=== PATIENT | female | born 1985 | race Two or more races ===

== ENCOUNTER 2024-03-08 17:15 | Inpatient (IN) | payer MEDICAID, SELFPAY ==
[2024-03-08] VITALS (28 sets, daily range): BP systolic 0–145; BP diastolic 0–81; PULSE 64–100; RESP 16–18; TEMP 36.9–37.1; O2SAT 91–100; BMI 26.6
--- NOTE | 2024-03-08 18:05 | XR_ITS ---
Examination: age Limited Technique: Limited transabdominal sonographic images pelvis Exam date and time: March 08, 2024 1917 hrs. Indications: Induction, unknown presentation Findings: Viable intrauterine gestation cephalic presentation spine maternal left Cardiac motion 130 BPM Estimated gestational weight 3588.9 g Impression: Viable intrauterine gestation cephalic presentation
[2024-03-08 18:07] LABS: Basophils % (Auto) 0 % (0-2.5); Eosinophils # (Auto) 0.1 Thou/mm3 (0.0-0.5); Eosinophils % (Auto) 1 % (0-10); Hematocrit 38.1 % (36.0-46.0); Hemoglobin 13.3 g/dL (12.0-16.0); Immature Granulocytes % (Auto) 1 % (0-0); Lymphocytes # (Auto) 2.8 Thou/mm3 (1.0-4.8); Lymphocytes % (Auto) 28 % (10-50); Mean Corpuscular HGB Conc 34.9 g/dl (31.0-37.0); Mean Corpuscular Volume 92 fL (80-100); Monocytes # (Auto) 0.6 Thou/mm3 (0.0-0.8); Monocytes % (Auto) 6 % (0-12); Neutrophils # (Auto) 6.4 Thou/mm3 (1.8-7.7); Neutrophils % (Auto) 64 % (37-80); Nucleated Red Blood Cell % 0 /100 WBC (0); Platelet Count 127 Thou/mm3 (140-440); RDW Standard Deviation 42.6 fL (36.4-46.3); Red Blood Count 4.15 Miln/mm3 (4.00-5.20)
--- NOTE | 2024-03-08 18:29 | PD.LDHP ---
Documentation for date of: 03/08/24 OB Labor/Induct. HPI History of Present Illness Chief complaint: 38 y/o AMA presents for IOL due to AMA elective : 2 Para: 0 Term pregnancies: 0 pregnancies: 0 Living children: 0 History of Abortions: Spontaneous and Elective: 1 History of Vaginal deliveries: 0 History of sections: No History of : No LJ: 03/09/24 Gestational Age (weeks): 39 Gestational Age (days): 6 Indication for induction: other (AMA and elective) History of present illness: 38 y/o AMA presents for IOL due to AMA elective. Cervix is closed, membranes intact, category 1 tracing. GBS is neg. has been complicated by advance maternal age. Otherwise normal . Fetus is vertex per US and EFW 3500g. History of Present Dating criteria: based on LMP only Adequate Care: Yes Ultrasounds: normal 1st trimester US and normal mid trimester US Obstetrical complications: other (AMA) Labs Labs: Positive: Rubella Titre, Negative: RPR, Hepatitis B, HIV, Chlamydia, Gonorrhea and Group Beta Strep and Unknown: Herpes Type 1, Herpes Type 2 and Covid-19 Review of Systems Review of Systems Systems Reviewed: All systems reviewed, normal except as documented Past Medical History Surgical History SURGICAL: Negative Section Meds Home Medications and Allergies Home Medications ?Medication ?Instructions ?Recorded ?Confirmed ?Type yfmitwik-[id number] 1 mg See Rx Instructions .Route .COMPLEX 03/08/24 03/08/24 History tablet Allergies Allergy/AdvReac Type Severity Reaction Status Date / Time No Known Allergies Allergy Verified 03/08/24 17:36 OB Exam Physical Exam Vital signs: Temp Pulse Resp BP Pulse Ox 98.4 F 71 18 122/79 99 03/08/24 17:25 03/08/24 18:06 03/08/24 17:25 03/08/24 18:06 03/08/24 18:25 Constitutional Constitutional: no acute distress Routine HEENT Exam Head: Present normocephalic and atraumatic Eye: Present EOMI, PERRL and normal accommodation ENT: Present mucous membranes moist Routine Neck Exam Neck: Present full ROM Routine Respiratory Exam Respiratory: Absent respiratory distress Routine Cardiovascular Exam Cardiovascular: Present RRR Routine Abdominal Exam Abdominal: Present soft and normoactive bowel sounds Comments: Gravid Uterus EFW 3500g Routine Exam External: Present normal urethra appearance; Absent lesions Detailed Labor and Delivery Exam Dilation (cm): closed Consistency: medium Membranes: intact Baseline heart rate: 125 monitor accelerations: 15x15 monitor decelerations: None residential variability: Moderate (11-25) Contraction frequency (min): none Routine Extremities Exam Extremities: Present full ROM Routine Back/Spine/Pelvis Exam Back/Spine: Present full ROM Routine Skin Exam Skin: Present intact, dry and warm Routine Neurological Exam Neurological: Present alert, oriented X3 and CN II-XII intact Routine Psychiatric Exam Psychiatric: Present normal affect and normal thought process OB Results Labs 03/08/24 17:38 Labs: Short CBC 03/08/24 Range/Units 17:38 WBC 10.0 (3.6-11.0) Thou/mm3 Hgb 13.3 (12.0-16.0) g/dL Hct 38.1 (36.0-46.0) % Plt Count 127 L (140-440) Thou/mm3 OB Assessment & Plan Assessment and Plan (1) Encounter for induction of labor: Status: Acute (2) AMA (advanced maternal age) primigravida 35+: Status: Acute (3) with 39 completed weeks gestation: Status: Acute Additional Plan Induction method: other (Cervidil) Plan: induction, anticipate NVD and consult MD prn Additional Plan Comment: Routine Admit orders Ok to eat regular diet early in the induction Intermittent monitor is ok (2) AMA (advanced maternal age) primigravida 35+ Qualifiers: Trimester: third trimester Qualified Code(s): O09.513 - Supervision of elderly primigravida, third trimester
[2024-03-08 18:42] LABS: Syphilis Nonreactive (Nonreactive)
[2024-03-08] MEDS: RINGERS LACTATED 1000 ML 1,000 ML 125 ML IV (19:14)
[2024-03-08] MEDS: DINOPROSTONE 10 MG VAG.SUPP VAGINAL (20:03)
[2024-03-09] VITALS (179 sets, daily range): BP systolic 0–205; BP diastolic 0–109; PULSE 40–155; RESP 16–20; TEMP 36.7–38.3; O2SAT 91–100
[2024-03-09] MEDS: RINGERS LACTATED 1000 ML 1,000 ML 125 ML IV ×4 (02:04→15:18)
--- NOTE | 2024-03-09 08:37 | PD.LDPN ---
Documentation for date of: 03/09/24 OB Labor Progress Note Pain Control Pain control: tolerating well Pelvic Exam Dilation (cm): 1 Effacement (%): 50 station: -3 Amniotic membrane status: Intact Contractions Monitor mode: External Contraction frequency: 2-4 Contraction duration: 40-90 Status status: Category l Assessment and Plan Assessment: induction ongoing Plan OB labor note: continuous present management Comments: Will start cytotec Pt is slowly progressing, but it is to be anticipated Anticipate
[2024-03-09] MEDS: MISOPROSTOL 50 mCg TABLET PO (09:15)
--- NOTE | 2024-03-09 16:41 | PD.LDPN ---
Documentation for date of: 03/09/24 OB Labor Progress Note Pain Control Pain control: epidural Pelvic Exam Dilation (cm): 6 Effacement (%): 90 station: -2 Amniotic membrane status: Ruptured (clear SROM) Contractions Monitor mode: External Contraction frequency: 2-4 Contraction intensity: Moderate Status status: Category l Assessment and Plan Assessment: active labor Plan OB labor note: continuous present management Comments: PT is progressing well on her on recently SROM, received an epidural, pt is comfortable Anticipate
[2024-03-09] MEDS: ACETAMINOPHEN IVPB 1,000 MG/100 ML VIAL 250 MG IV (22:39)
[2024-03-09] MEDS: GENTAMICIN/NS 80 MG IVPB 80 MG in PRE-MIXED 1 BAG 50 MG IV (23:47)
[2024-03-10] VITALS (46 sets, daily range): BP systolic 0–185; BP diastolic 0–124; PULSE 53–125; RESP 13–24; TEMP 36.1–37.4; O2SAT 80–100
[2024-03-10] MEDS: METOCLOPRAMIDE INJ 5 MG/ML VIAL 2 ML 10 MG IVP (00:48)
[2024-03-10] MEDS: FAMOTIDINE INJ 10 MG/ML VIAL 2 ML 20 MG IV (00:49)
[2024-03-10] MEDS: ceFAZolin/D5W 2 GM IV 2 GM/100 ML BAG IV (00:49)
--- NOTE | 2024-03-10 02:16 | PD.LDPN ---
Documentation for date of: 03/10/24 OB Labor Progress Note Pelvic Exam Dilation (cm): 10 Effacement (%): 90 station: +2 Amniotic membrane status: Ruptured (clear SROM) Contractions Monitor mode: External Contraction frequency: 2-4 Contraction intensity: Moderate Status status: Category ll Assessment and Plan Comments: I was called by RN that patient is complete and having deep variables while pushing. Seen at the bedsid, patient is not pushing well epidural has been off. Trial of vacuum abandoned as there was no descent on first pull and baby continued to be category 2
[2024-03-10] MEDS: OXYTOCIN in NS 20 units 20 UNIT/1,000 ML BAG 125 UNIT IV (02:51)
[2024-03-10] MEDS: Ampicillin Inj 2,000 MG in SODIUM CHLORIDE 0.9% (P) 100 ML 200 MG IV ×4 (03:00→21:41)
[2024-03-10] MEDS: KETOROLAC INJ 30 MG/ML VIAL IVP ×3 (03:18→15:47)
[2024-03-10 07:52] LABS: Basophils # (Auto) 0.1 Thou/mm3 (0.0-0.2); Basophils % (Auto) 0 % (0-2.5); Eosinophils # (Auto) 0.4 Thou/mm3 (0.0-0.5); Eosinophils % (Auto) 2 % (0-10); Hemoglobin 12.5 g/dL (12.0-16.0); Immature Granulocytes % (Auto) 1 % (0-0); Immature Granulocytes Auto 0.13 Thou/mm3 (0.00-0.00); Lymphocytes # (Auto) 1.4 Thou/mm3 (1.0-4.8); Lymphocytes % (Auto) 7 % (10-50); Mean Corpuscular HGB Conc 34.7 g/dl (31.0-37.0); Mean Corpuscular Hemoglobin 32.3 pg (25.0-35.0); Mean Corpuscular Volume 93 fL (80-100); Monocytes # (Auto) 0.9 Thou/mm3 (0.0-0.8); Monocytes % (Auto) 4 % (0-12); Neutrophils # (Auto) 17.6 Thou/mm3 (1.8-7.7); Neutrophils % (Auto) 86 % (37-80); Nucleated Red Blood Cell % 0 /100 WBC (0); Platelet Count 104 Thou/mm3 (140-440); RDW Standard Deviation 44.2 fL (36.4-46.3); Red Blood Count 3.87 Miln/mm3 (4.00-5.20); White Blood Count 20.4 Thou/mm3 (3.6-11.0)
[2024-03-10] MEDS: Milk Of Magnesia Susp 30 ML UDC PO (08:13)
[2024-03-10] MEDS: SIMETHICONE 80 MG CHEW PO (08:13)
--- NOTE | 2024-03-10 08:35 | PD.LDDELS ---
Vacuum Assisted Delivery Vacuum Application Vacuum type:: Mityvac Vacuum Procedure Number of pulls (contractions):: 1 Number of pop-offs:: 1 Vacuum successful:: No Additional Comments Additional comments: as descent of head was not seen during the pull , and heart tone remained cat 2 , PLTCS was doen and vacccum attempt abandoned Data (Ramirez) Data Hx Section: No Reason for Primary Section: cat 2 FHT : 2 Para: 0 Term: 0 : 0 : 1 Delivery Data (Ramirez) Labor Data Induction: Yes ROM Date: 03/09/24 ROM Time: 13:50 Rupture Type: SROM Amniotic Fluid: Bloody Delivery Data Labor Onset Stage 1 Date: 03/09/24 Labor Onset Stage 1 Time: 13:30 Labor Onset Stage 2 Date: 03/10/24 Labor Onset Stage 2 Time: 00:08 Delivery Date: 03/10/24 Delivery Time: 01:48 Gestational age (weeks): 39 Gestational age (days): 6 Placenta Delivery Date: 03/10/24 Placenta Delivery Time: 01:49 Delivered by: Sanju Styles Delivery nurse: Micaela Gomez Delivery Method Delivery: Delivery Type: Primary Anesthesia Type Primary Anesthesia: Epidural Secondary Anesthesia: General Placenta Placenta Delivery: Manual Placenta Sent for Examination: Yes EBL Estimated blood loss (ml): 300 Data (Ramirez) Data Infant Gender: Female Infant Weight Grams: 3385 1 Minute Total: 2 5 Minute Total: 8 10 Minute Total: 9
--- NOTE | 2024-03-10 08:38 | PD.GYNPROC ---
Operative Note - POSTAL CARRIER Procedure Date of procedure: 03/10/24 Procedure Performed: PRIMARY lOW TRANSVERSE C SECTION Indication: Cta 2 FHT , Vaccum attempt abandoned Pre-Op diagnosis: cat 2 FHT Post-Op diagnosis: SAME Anesthesia type: General Procedure description: Informed consent was obtained and the patient was taken to the operating room.? Identity was confirmed by double identifiers and she was placed on the operating table.The abdomen and perineum were prepped in the usual sterile fashion and a Chin catheter was placed to continuous drainage.? Sterile drapes were applied.??A Pfannenstiel skin incision was made with a scalpel and carried to the subcutaneous fat up to the rectus fascia.? The rectus fascia was incised on either side of the midline and the incisions were extended bilaterally.? The fascia was gently dissected off the ventral surface of the rectus muscle both superiorly and inferiorly. There was no anatomica plane between mil rectus sheath, muscle and peritoneum. Carefully a peritioneal window created and after ruling out adhesion of bowel and bladder it was extended . . The baby was cephalic position stuck deep in pelvis, vaginal push was not succeful in delivering the head , decision taken to do a reverse breech extraction which was successful. The umbilical cord , was doubly clamped, divided and the infant was handed over to the waiting team.cord blood and segment obtained. ? placenta delivered by controlled cord traction . The interior of the uterus was now thorougly cleaned of all blood and debris and membranes.? The? hysterotomy was closed using 0 vicryl suture in double layers. Once the repair was completed the hysterotomy was inspected, was noted to be adequately hemostatic . Muscle oozing stopped by bovie. The rectus fascia was repaired using Vicry 0 in a running fashion.? The subcutaneous layer was now, approximated with 3-0 vicryl in double layers.? All bleeding points were cauterized using the Bovie.?The skin was closed using 4-0 Monocryl in a subcuticular fashion.? The skin was cleaned and a sterile dressing was applied. The patient was now undraped, the abdomen and back were thoroughly cleaned and she was now transferred to the recovery room in a stable Estimated blood loss (ml): 300 Surgical staff Operation Date: 03/10/24 01:[address] MAGISTRATE: Bakari Mckenzie RN First Assistant: Kesha Aponte Diagnosis Problem List Completed Was Problem List Reviewed/Reconciled?: Yes
[2024-03-10] MEDS: OXYTOCIN in NS 20 UNIT/1,000 ML BAG IV (13:29)
[2024-03-10] MEDS: ACETAMINOPHEN 325 MG TABLET 650 MG PO (15:05)
--- NOTE | 2024-03-10 15:39 | CHAP ---
09:30 AM Visited by spiritual care volunteer Provided Baby [place] and prayer for Patient.
--- NOTE | 2024-03-10 16:09 | PC.NURSE ---
Removed patients felix at 14:55. Patient out of bed and urinated 300 ML at 15:45
[2024-03-10 19:04] LABS: Gentamicin, Random 3.8 mcg/mL (4.0-10.0)
--- NOTE | 2024-03-10 20:09 | PC.NURSE ---
03/10/242004: Called MD Joel to clarify antiobiotic orders for pt. Received orders via telephone to discontinue Gentamicin, administer ordered ampicillin 2,000mg at 2100 and then discontinue following completion, and order and administer clindamicin 900mg IV x1 now.
[2024-03-10] MEDS: IBUPROFEN TAB 400 MG TABLET 800 MG PO (20:33)
[2024-03-10] MEDS: CLINDAMYCIN 900MG IVPB 50 ML 100 MG IV (20:34)
[2024-03-11] MEDS: HYDROcodone/APAP 5/325 TABLET 2 TAB PO ×3 (03:31→15:48)
[2024-03-11 03:45] VITALS: BP 113/67; PULSE 79; RESP 20; TEMP 36.9; O2SAT 96
[2024-03-11 07:40] VITALS: BP 127/68; PULSE 82; RESP 18; TEMP 37.1; O2SAT 96
--- NOTE | 2024-03-11 11:13 | PD.LDPPPRG ---
Subjective Subjective Interval history: Patient seen at the bedside denies any fever, nausea vomiting. Has been tolerating p.o. diet. Has already passed gas Exam Vital Signs Temp Pulse Resp BP Pulse Ox O2 Del Method O2 Flow Rate 98.8 F 82 18 127/68 96 Room Air 6 03/11/24 07:40 03/11/24 07:40 03/11/24 07:40 03/11/24 07:40 03/11/24 07:40 03/11/24 07:40 03/10/24 03:00 Constitutional Constitutional: no acute distress Routine HEENT Exam Head: Present normocephalic and atraumatic Eye: Present EOMI and PERRL ENT: Present mucous membranes moist Routine Neck Exam Neck: Present supple and trachea midline Routine Respiratory Exam Respiratory: Present chest non-tender, lungs clear, normal breath sounds and no resp distress Routine Cardiovascular Exam Cardiovascular: Present RRR Routine Abdominal Exam Abdominal: Present soft and normoactive bowel sounds Routine Extremities Exam Extremities: Present full ROM Routine Skin Exam Skin: Present intact, dry and warm Routine Neurological Exam Neurological: Present alert, oriented X3 and CN II-XII intact Routine Psychiatric Exam Psychiatric: Present normal affect and normal thought process Objective Labs 03/10/24 07:07 Labs: Laboratory Results - last 24 hr 03/10/24 18:07 Random Gentamicin 3.8 L Assessment & Plan Problem List (1) Encounter for induction of labor: Status: Acute (2) AMA (advanced maternal age) primigravida 35+: Status: Acute (3) with 39 completed weeks gestation: Status: Acute Assessment Comment Assessment comment: 38-year-old para 3 status post repeat low-transverse , postop day 1 Meeting all postop milestones Vital signs stable Baby at the bedside doing well Plan Comment Plan Comment: Continue postop care Time Spent With Patient Time: Total time spent is greater than 50% in coordination of care (as documented) at patient's floor/unit and/or counseling patient:
[2024-03-11 15:30] VITALS: BP 126/77; PULSE 87; RESP 18; TEMP 36.9; O2SAT 99
[2024-03-11] MEDS: SIMETHICONE 80 MG CHEW PO (15:48)
[2024-03-11 20:20] VITALS: BP 131/77; PULSE 88; RESP 18; TEMP 37; O2SAT 98
[2024-03-11] MEDS: IBUPROFEN TAB 400 MG TABLET 800 MG PO (21:04)
[2024-03-12] MEDS: HYDROcodone/APAP 5/325 TABLET 2 TAB PO (01:06)
[2024-03-12 04:10] VITALS: BP 120/76; PULSE 85; RESP 17; TEMP 36.7; O2SAT 96
--- NOTE | 2024-03-12 08:09 | PD.LDPPPRG ---
Subjective Subjective Interval history: Patient at the bedside. Afebrile, tolerating p.o., ambulating, voiding, positive flatus Exam Vital Signs Temp Pulse Resp BP Pulse Ox O2 Del Method O2 Flow Rate 98.0 F 85 17 120/76 96 Room Air 6 03/12/24 04:10 03/12/24 04:10 03/12/24 04:10 03/12/24 04:10 03/12/24 04:10 03/12/24 04:10 03/10/24 03:00 Routine Abdominal Exam Comments: Soft, appropriately tender. Uterus firm, below the umbilicus. Incision clean, dry, intact Routine Exam Comments: Lochia similar to menses Routine Extremities Exam Comments: Homans' sign negative Objective Labs 03/10/24 07:07 Assessment & Plan Problem List (1) Encounter for induction of labor: Status: Acute (2) AMA (advanced maternal age) primigravida 35+: Status: Acute (3) with 39 completed weeks gestation: Status: Acute Assessment Comment Assessment comment: 38-year-old status post Postop day 2 Plan Comment Plan Comment: Routine care. DC, if stable Time Spent With Patient Time: Total time spent is greater than 50% in coordination of care (as documented) at patient's floor/unit and/or counseling patient:
--- NOTE | 2024-03-12 08:11 | PD.LDDS ---
DS: Providers Provider Date of admission: 03/08/24 17:15 Primary care physician: Physician No Primary/Family Admitting Provider: Jaya Joel MD Attending Provider on Admission: Sanju Styles MD Consults: 03/10/24 02:18 Referral Routine Comment: Attending Provider on DC: Jaya Joel MD Discharging Provider: Jaya Joel MD DS: Diagnosis Problem List Completed Was Problem List Reviewed/Reconciled?: Yes Summary/Hosp Course Brief History: 38 y/o AMA who came for induction of labor at term and delivered via primary due to nonreassuring heart tracing Her postop course was unremarkable and on postop day 2 she was discharged home Peripartum Data Delivery Method: Low Transverse Procedures: Procedures Operation Date: 03/10/24 01:35 Actual Procedure Side Surgeon p in OB Bilateral Sanju Styles MD Time Spent with Patient Time attestation: Total time spent providing and/or coordinating discharge services: Exam Vital Signs Temp Pulse Resp BP Pulse Ox O2 Del Method O2 Flow Rate 98.0 F 85 17 120/76 96 Room Air 6 03/12/24 04:10 03/12/24 04:10 03/12/24 04:10 03/12/24 04:10 03/12/24 04:10 03/12/24 04:10 03/10/24 03:00 Discharge Plan Plan Patient Disposition: HOME (Self Care) Prescriptions/Referrals Prescriptions/Med Rec: New acetaminophen 325 mg Tablet 650 mg PO Q4H 7 Days Qty: 28 0RF ibuprofen 400 mg Tablet 800 mg PO Q8H 7 Days Qty: 21 0RF docusate sodium [Colace] 100 mg capsule 100 mg PO QDAY 7 Days Qty: 7 0RF No Action 1 mg Tablet See Rx Instructions .ROUTE .COMPLEX Rx Instructions: as instructed Referrals: Jaya Joel MD [Physician] - (1 week) No Primary/Family,Physician [Primary Care Provider] - Patient/Caregiver Discharge Instructions Education Materials: C Section Dc Print Language: Cypriot Stand Alone Forms: Karen Award Info., Patient Portal Info Letter Discharge Order Discharge Orders: Discharge (Routine); Ordered 03/12/24 Ordered By: Jaya Joel Planned Discharge Date 03/12/24
[2024-03-12 09:01] VITALS: BP 119/76; PULSE 83; RESP 16; TEMP 37.6; O2SAT 96
[2024-03-12] MEDS: IBUPROFEN TAB 400 MG TABLET 800 MG PO (09:55)
== END 2024-03-12 13:15 | disposition home or self-care (01) | DRG 540 ==
LOC: S4SX 03-09 09:54 → S4NX 03-10 01:58
PROVIDERS: Admitting Provider Obstetrics & Gynecology; Visit Provider Student in an Organized Health Care Education/Training Program
PROC: 10D00Z1 Extraction of Products of Conception, Low, Open Approach (ICD-10-PCS; CPT 59514; principal; 2024-03-10 01:35)
DX: O76 Abnormality in fetal heart rate and rhythm complicating labor and delivery (principal); Z37.0 Single live birth; Z3A.39 39 weeks gestation of pregnancy
CPT/HCPCS: 36415; 59409; 76815; 80170; 82803; 85025; 86780; 86850; 86900; 86901; 94762; A4649; J0131; J0290; J0689; J1580; J1885; J2250; J2590; J2704; J2765; J2795; J3010; J3490; J7050; J7120; S0077; A9270; J0690; J0736

== ENCOUNTER 2024-03-28 10:47 | Emergency (ER) | payer MEDICAID, SELFPAY ==
[2024-03-28 10:55] VITALS: BP 153/84; PULSE 71; RESP 16; TEMP 36.7; O2SAT 99; BMI 22.2
--- NOTE | 2024-03-28 11:49 | PD.EDRME ---
Rapid Medical Screening Exam RME Arrival date/time: 03/28/24 10:47 This is a 38-year-old female that comes in with wound dehiscence. Patient states that she was breast-feeding her child and was about to stand up and she felt a rip in her lower incision for scar. Patient was previously treated for an infection around the scar. Patient complains of pain and fluid draining from wound. Patient called her EXPORT SPECIALIST and was told to come to the emergency room. Patient was 03/10/2024 I have greeted and performed a focused initial assessment of this patient. Initial appropriate labs ordered at this time. A comprehensive ED assessment and evaluation of the patient and analysis of all test and completion of medical decision making process will be conducted by additional ED provider. Chief Complaint: Wound Recheck / Suture Removal Time Seen by Provider: 03/28/24 11:28 Vital signs: Vital Signs Temperature 98.0 F 03/28/24 10:55 Pulse Rate 71 03/28/24 10:55 Respiratory Rate 16 03/28/24 10:55 Blood Pressure 153/84 H 03/28/24 10:55 Pulse Oximetry (%) 99 03/28/24 10:55 Oxygen Delivery Method Room Air 03/28/24 10:55
[2024-03-28 13:10] LABS: Basophils # (Auto) 0.1 Thou/mm3 (0.0-0.2); Basophils % (Auto) 1 % (0-2.5); Eosinophils # (Auto) 0.2 Thou/mm3 (0.0-0.5); Eosinophils % (Auto) 2 % (0-10); Hematocrit 42.3 % (36.0-46.0); Hemoglobin 14.1 g/dL (12.0-16.0); Immature Granulocytes % (Auto) 2 % (0-0); Immature Granulocytes Auto 0.23 Thou/mm3 (0.00-0.00); Lymphocytes # (Auto) 2.3 Thou/mm3 (1.0-4.8); Lymphocytes % (Auto) 20 % (10-50); Mean Corpuscular HGB Conc 33.3 g/dl (31.0-37.0); Mean Corpuscular Hemoglobin 31.1 pg (25.0-35.0); Mean Corpuscular Volume 93 fL (80-100); Monocytes # (Auto) 0.7 Thou/mm3 (0.0-0.8); Monocytes % (Auto) 6 % (0-12); Neutrophils # (Auto) 8.1 Thou/mm3 (1.8-7.7); Neutrophils % (Auto) 70 % (37-80); Nucleated Red Blood Cell % 0 /100 WBC (0); Platelet Count 422 Thou/mm3 (140-440); RDW Standard Deviation 42.6 fL (36.4-46.3); Red Blood Count 4.53 Miln/mm3 (4.00-5.20); White Blood Count 11.6 Thou/mm3 (3.6-11.0)
[2024-03-28 13:17] LABS: Alanine Aminotransferase 14 U/L (10-49); Albumin, Serum 4.5 gm/dL (3.5-5.0); Albumin/Globulin Ratio 1.4 (1.2-2.2); Alkaline Phosphatase 132 U/L (46-116); Anion Gap 8 (7-16); Aspartate Amino Transferase 18 U/L (0-34); BUN/Creatinine Ratio 19 Ratio (12-20); Bilirubin,Total 0.2 mg/dL (0.3-1.2); Blood Urea Nitrogen 15 mg/dL (9-23); Calcium 9.4 mg/dL (8.3-10.6); Calcium (Corrected) 9.4 mg/dL (8.5-10.1); Carbon Dioxide 26.9 mMol/L (20.0-31.0); Chloride 104 mMol/L (98-107); Creatinine (Component) 0.8 mg/dL (0.6-1.3); Estimated Creatinine Clearance 69.2 mL/min (>60); Globulin 3.3 gm/dL (2.3-3.5); Glucose 89 mg/dL (74-106); Osmolality,Calculated 277 (275-295); Potassium 3.9 mMol/L (3.4-5.1); Sodium 139 mMol/L (136-145); Total Protein 7.8 gm/dL (5.7-8.2); eGFR > 60 See Note
--- NOTE | 2024-03-28 15:38 | PD.EDWOUND ---
ED Wound/Laceration-RME/HPI General Chief Complaint: Wound Recheck / Suture Removal Stated Complaint: INCISION OPENING Time Seen by Provider: 03/28/24 11:28 Arrival date/time: 03/28/24 10:47 RME / HPI RME / HPI narrative: 38-year-old female that comes in with wound dehiscence. Patient had section done 15 days ago. Patient states that she was breast-feeding her child and was about to stand up and she felt a rip in her lower incision for scar. Patient was previously treated for an infection around the scar. Patient complains of pain and fluid draining from wound. Patient called her DIESEL MAINTENANCE TECHNICIAN and was told to come to the emergency room. Patient denies any fever. Denies any vomiting. Denies any other complaints no medication was taken prior to arrival. Related Data Home Medications ?Medication ?Instructions ?Recorded ?Confirmed [id number]-FA 1 mg See Rx Instructions .Route .COMPLEX 03/08/24 03/08/24 tablet Previous Rx's ?Medication ?Instructions ?Recorded cephalexin 500 mg capsule 500 mg PO Q8H 7 days #21 caps 03/28/24 Allergies Allergy/AdvReac Type Severity Reaction Status Date / Time No Known Allergies Allergy Verified 03/08/24 17:36 Review of Systems Review of Systems Narrative Review of Systems: Review of system reviewed and within normal limits except mentioned in HPI ED Exam Narrative Physical exam: VITAL SIGNS: Reviewed. GENERAL APPEARANCE: Alert and interactive, follows commands, no acute distress, HEAD AND FACE: Non-traumatic. ENT: PERRL, pink conjunctivitis, eyelid no trauma, Mucous membrane moist. NECK: Supple, nontender, no nuchal rigidity. CHEST: No tenderness, no crepitus, no paradoxical movement, no retractions. LUNGS: Clear, well ventilated, symmetric, no rales, no wheezing, no ronchi, no stridor, good breath sounds bilaterally. HEART: Regular rate, regular rhythm, no murmur, no gallops. ABDOMEN: Soft, positive bowel sounds, nondistended, no guarding, nontender, no rebound, no masses, status post section, wound is completely healed except for 2 spots with wound stitch abscess that is draining severity mild nonfluctuant RECTAL: Deferred. GENITAL: Deferred. NEUROLOGICAL: Gross motor function intact sensory function intact, Appropriate for age. MUSCULOSKELETAL: low back nontender, full range of motion. EXTREMITIES: Nontender, full range of motion. SKIN: Color pink, dry, no rash, no lacerations, no abrasions, no contusions. LYMPHATICS: Deferred. Course Quality Measures none Orders Category Date Time Status CBC Stat Lab 03/28/24 12:35 Completed Comprehensive Metabolic Panel Stat Lab 03/28/24 12:35 Completed Trimethoprim/Sulfa 160/800 Ds [Bactrim Ds] Med 03/28/24 15:37 Discontinued 1 tab PO X1 ONE cephALEXin [Keflex] Med 03/28/24 15:47 Discontinued 500 mg PO X1 ONE Vital Signs Vital signs: Vital Signs Temperature 98.0 F 03/28/24 10:55 Pulse Rate 71 03/28/24 10:55 Respiratory Rate 16 03/28/24 10:55 Blood Pressure 153/84 H 03/28/24 10:55 Pulse Oximetry (%) 99 03/28/24 10:55 Oxygen Delivery Method Room Air 03/28/24 10:55 Wound / Laceration MDM Narrative MDM Narrative:: Spoke with Dr. Joel, who told me to give Keflex instead of Bactrim. However patient already took earlier prior to talking to him. Patient will be discharged home on Keflex. Patient's laboratory workup all came back unremarkable. Wound dressing was done by me, I did not notice any fluctuancy, only a small abscess that is draining on the surgical site, no redness noted to the surrounding, Patient data External records reviewed:: None Clinical information provided by:: none Social determinants that could affect healthcare access:: none Patient has the following chronic illnesses:: None How is presenting disease/condition affected by chronic disease/condition?: caused by Evaluation data The following diagnostics were reviewed and interpreted by me:: lab results Lab and/or radiology exams considered but not ordered:: None Interpretation Summary: Laboratory of all came back unremarkable Medications / Prescriptions Medications or Prescriptions considered but not ordered:: None Medication administrations:: Medication Administration History Discontinued Medications Cephalexin HCl (Cephalexin 250 Mg Capsule) 500 mg PO X1 ONE Stop: 03/28/24 15:48 Trimethoprim/Sulfamethoxazole (Trimethoprim/Sulfa 160/800 Ds Tablet) 1 tab PO X1 ONE Stop: 03/28/24 15:38 Keflex and Bactrim Consultations Consultation(s) initiated? (list below): No Consultation #1 (Physician, Specialty, Details): None Diagnosis Wound Differential Diagnosis: abscess and other (Surgical wound infection) Most likely diagnosis given after review of the tests above:: Surgical wound abscess Admission Indicated Admission indicated?: not indicated Explain why admission is indicated or not indicated:: None Admission Request Was there a request for admission?: No Disposition Plan Disposition Plan: Discharge Discharge Attestation Discharge Attestation: The patient was given an opportunity to ask questions and understood the discharge instructions. Discharge instructions specifically effects, indications for sooner follow up or return to the emergency department, and the expected course of current diagnosis. Patient condition: Stable Discharge Plan Plan Patient Disposition: HOME (Self Care) Disposition Comment: stable Prescriptions/Referrals Prescriptions/Med Rec: New cephalexin 500 mg capsule 500 mg PO Q8H 7 Days Qty: 21 0RF No Action 1 mg Tablet See Rx Instructions .ROUTE .COMPLEX Rx Instructions: as instructed Referrals: Montserrat Guzmán NP [Primary Care Provider] - In 1 week Problem List Clinical Impression: Postoperative wound abscess, Status post Patient/Caregiver Discharge Instructions Education Materials: ED Wound Care Additional Instructions: Thank you for the opportunity for serving you today. You are stable for discharged . You are advised to: Follow-up with your DIESEL MAINTENANCE TECHNICIAN in 2-3 days Return to ED for worsening of symptoms Increase oral fluids Take medication as prescribed Daily dressing as needed Print Language: Gambian Stand Alone Forms: Karen Award Info., Patient Portal Info Letter MEG/HERMILA Supervising Physician JUAN Supervising Physician: MD Brian
[2024-03-28] MEDS: cephALEXin 250 MG CAPSULE 500 MG PO (16:06)
[2024-03-28] MEDS: TRIMETHOPRIM/SULFA 160/800 DS TABLET 1 TAB PO (16:06)
== END 2024-03-28 16:17 | disposition home or self-care (01) ==
PROVIDERS: Nurse Practitioner Family; Emergency Provider Emergency Medicine; PCP Nurse Practitioner Women's Health
DX: T81.41XA Infection following a procedure, superficial incisional surgical site, initial encounter (principal)
CPT/HCPCS: 36415; 80053; 85025; 99283; A9270